=== PATIENT | female | born 1945 | race Caucasian/White ===

== ENCOUNTER 2022-08-13 11:10 | Emergency (ER) | payer MEDICARE, MEDICAID ==
[~2022-08-13] VITALS: Ht 170.2 cm; Wt 92.7 kg
[2022-08-13 11:14] VITALS: TEMP 98.6
[2022-08-13 12:21] LABS: ANION GAP 13 mmol/L (7-16); BLOOD UREA NITROGEN 19 mg/dL (10-20); CALCIUM 9.7 mg/dL (8.4-10.2); CARBON DIOXIDE 19 mmol/L (23-31); CHLORIDE 106 mmol/L (98-107); CREATININE, serum 1.04 mg/dL (0.57-1.11); GLUCOSE 164 mg/dL (70-99); SODIUM 138 mmol/L (136-145)
[2022-08-13 12:25] LABS: ACETONE,SERUM NEGATIVE
[2022-08-13 13:07] VITALS: BP 133/65; PULSE 85
== END 2022-08-13 13:19 | disposition home or self-care (01) ==
LOC: COL.ER 11:10 → EDBD 11:12 → COL.ER 13:19
PROVIDERS: Emergency Medicine
DX: I10 Essential (primary) hypertension (principal); E11.9 Type 2 diabetes mellitus without complications; Z79.4 Long term (current) use of insulin
CPT/HCPCS: J7120

== ENCOUNTER → 2022-10-16 | Outpatient (RCR) | payer MEDICARE, MEDICAID ==
[~2022-10-16] MED LIST: BRILINTA90 MG PO; CYMBALTA 60MG60 MG PO; GLUCOPHAGE1000 MG PO; LANTUS100 U/ML SQ; LASIX 20MG TABL20 MG PO; NEURONTIN300 MG/CAP PO; NEXLETOL180 MG PO; PROTONIX 40MG T40 MG PO; TOPROL XL 25MG25 MG PO; TRULICITY0.75 MG/0. SQ; VASCEPA1 GM PO
== END | disposition home or self-care (01) ==
LOC: COL.CR
DX: Z48.812 Encounter for surgical aftercare following surgery on the circulatory system (principal); Z95.5 Presence of coronary angioplasty implant and graft

== ENCOUNTER 2022-11-13 15:45 | Outpatient (RCR) | payer MEDICARE, MEDICAID | END 2022-11-15 | disposition home or self-care (01) | LOC: COL.CR | DX: Z48.812 Encounter for surgical aftercare following surgery on the circulatory system (principal); Z95.5 Presence of coronary angioplasty implant and graft | CPT/HCPCS: J2704 ==